=== PATIENT | female | born 1995 | race Two or more races ===

== ENCOUNTER 2021-09-12 22:06 | Emergency (ER) | payer OTHER ==
[~2021-09-12] VITALS: Ht 165.1 cm; Wt 82.7 kg
[2021-09-12 22:25] LABS: COVID AG,FIA SOURCE NASAL SWAB
[2021-09-13 01:39] VITALS: BP 122/75
== END 2021-09-13 01:43 | disposition home or self-care (01) ==
LOC: EMS 22:06
DX: J02.9 Acute pharyngitis, unspecified (principal); Z20.822 Contact with and (suspected) exposure to COVID-19
CPT/HCPCS: 87430; 99283